=== PATIENT | female | born 1980 | race Caucasian/White ===

== ENCOUNTER 2019-03-14 21:09 | Emergency (ER) | payer BC, OTHER ==
[~2019-03-14] VITALS: Ht 167.6 cm; Wt 72.6 kg
--- NOTE | 2019-03-14 21:28 | ED Neck-Back Pain/Injury ---
General Chief Complaint: Head/Cervical Problems Stated Complaint: NECK PAIN Source of Information: Patient, Spouse Exam Limitations: No Limitations History of Present Illness Date Seen by Provider: Mar 14, 2019 Time Seen by Provider: 21:12 Initial Comments Patient walks in by private conveyance with chief complaint that she has sudden onset of right neck pain and spasm more in her anterior neck. She's had a bit of a sinus infection lately without any pain in her face fevers chills nausea. She did not do anything to incite this injury but she does have 130 pound child in a wheelchair she helps take care of with her . She's never had neck problems neck surgery. She's having no weakness or dropping things. No difficulty walking. Allergies and Home Medications Allergies Coded Allergies: benzonatate (Verified Allergy, Unknown, 03/14/19) Patient Home Medication List Home Medication List Reviewed: Yes Review of Systems Constitutional: No chills, No diaphoresis EENTM: nose congestion; No ear discharge, No hearing loss Respiratory: No cough, No dyspnea on exertion Cardiovascular: No chest pain, No palpitations Gastrointestinal: No abdominal pain, No constipation, No diarrhea Genitourinary: No discharge, No dysuria : No Control/STD Prophylaxis: Other (hysterectomy) Physical Exam Vital Signs Vital Signs - First Documented 03/14/19 21:15 Temp 97.4 Pulse 61 Resp 18 B/P (MAP) 141/76 (97) Pulse Ox 98 O2 Delivery Room Air Capillary Refill : Height, Weight, BMI Height: '" Weight: lbs. oz. kg; BMI Method: General Appearance: WD/WN, Mild Distress HEENT: PERRL/EOMI, TMs Normal (mild clear effusion without bulging or loss of tympanic membrane landmarks bilaterally), Pharynx Normal, Other (clear rhinorrhea, mild) Neck: Normal Inspection, Supple, Limited Range of Motion, Tender Lateral (sternocleidomastoid muscle belly is in spasm and tender to palpation on the right) Cardiovascular: Regular Rate, Rhythm, Normal Peripheral Pulses Respiratory: Chest Non Tender, Lungs Clear, Normal Breath Sounds, No Accessory Muscle Use, No Respiratory Distress Peripheral Pulses: 2+ Radial Pulses (R), 2+ Radial Pulses (L) Neurologic/Psychiatric: Alert, Oriented x3, chemical unit operator II-XII Norm as Tested Skin: Normal Color, Warm/Dry Progress/Results/Core Measures Results/Orders My Orders Orders - CLAUDETTE QUEEN Orphenadrine Injection (Norflex Injectio (03/14/19 21:30) Ketorolac Injection (Toradol Injection) (03/14/19 21:30) Vital Signs/I&O 03/14/19 21:15 Temp 97.4 Pulse 61 Resp 18 B/P (MAP) 141/76 (97) Pulse Ox 98 O2 Delivery Room Air Progress Progress Note : Time: 21:27 Progress Note Cervical radiculopathy versus torticollis from her recent viral upper respiratory tract infection. NSAIDs and muscle relaxants, heating pad rest and follow-up in one week with primary care if necessary. Departure Impression Primary Impression: Torticollis, acute Disposition: 01 HOME, SELF-CARE Condition: Improved Departure-Patient Inst. Decision time for Depature: 21:32 Referrals: LANG ESPINOSA MD Primary Care Physician Patient Instructions: Torticollis (DC) Add. Discharge Instructions: Gentle massage, heat, Tylenol 1000 g every 8 hours as needed for pain. Take the Naprosyn 500 mg twice daily on a schedule for the next week or 2 for pain. Cyclic been to bring one tablet every 8 hours as needed for muscle spasm in your neck. If your symptoms persist beyond 7 days you may benefit from following up with the primary care doctor for further management. If you're symptoms spread to the other side of your body or you experience numbness you may follow-up with her primary care doctor or the ER for further evaluation. All discharge instructions reviewed with patient and/or family. Voiced understanding. Scripts Cyclobenzaprine HCl (Cyclobenzaprine HCl) 10 Mg Tablet 10 MG PO Q8H PRN for SPASMS, #20 TAB 0 Refills Prov: CLAUDETTE QUEEN 03/14/19 Naproxen (Naprosyn) 500 Mg Tablet 500 MG PO BID for 14 Days, #30 TAB 0 Refills Prov: CLAUDETTE QUEEN 03/14/19 CLAUDETTE QUEEN Mar 14, 2019 21:28
[2019-03-14] MEDS ORDERED: ORPHENADRINE 60 MG/2 ML (NORFLEX) AMP IM ONE (21:30)
[2019-03-14] MEDS ORDERED: KETOROLAC 60 MG/2 ML VIAL IM ONE (21:30)
[2019-03-14] MEDS ORDERED: NAPR-1071 PO (21:37)
[2019-03-14] MEDS ORDERED: CYCL10TA9 PO (21:37)
[2019-03-14 22:00] VITALS: BP 141/76
== END 2019-03-14 21:56 | disposition home or self-care (01) ==
LOC: ER FS 21:11
DX: M43.6 Torticollis (principal); Z88.8 Allergy status to other drugs, medicaments and biological substances
CPT/HCPCS: 96372; 99284